=== PATIENT | female | born 1965 ===

== ENCOUNTER 2017-03-17 16:41 | Emergency (ER) | payer OTHER ==
[2017-03-17 17:00] VITALS: BP 151/90; PULSE 86; RESP 18; TEMP 98.3; O2SAT 99
--- NOTE | 2017-03-17 17:27 | ED PDOC ---
HPI: Abdomen Time Seen by Provider: 03/17/17 17:06 Chief Complaint (Nursing): Abdominal Pain Chief Complaint (Provider): Abdominal pain History Per: Patient History/Exam Limitations: no limitations Outside of [place] travel?: No Current Symptoms Are (Timing): Still Present Location Of Pain/Discomfort: Diffuse Quality Of Discomfort: "Pain" Associated Symptoms: Nausea, Vomiting. denies: Fever, Diarrhea, Constipation, Urinary Symptoms Additional Complaint(s): The patient is a 51yo female, presents to the ED for evaluation of abdominal pain since today with associated nausea and vomiting. She reports the pain is located in her right lateral abdomen, denies any back pain. Contrary to triage note, the patient denies any chest pain. She also denies constipation, diarrhea or genitourinary symptoms. The patient offers no additional medical complaints. Past Medical History Reviewed: Historical Data, Nursing Documentation, Vital Signs Vital Signs: Last Vital Signs Temp 98.3 F 03/17/17 16:54 Pulse 86 03/17/17 16:54 Resp 18 03/17/17 16:54 BP 151/90 H 03/17/17 16:54 Pulse Ox 99 03/18/17 05:29 - Medical History PMH: Diabetes, HTN, Hypothyroidism Denies: HIV, Chronic Kidney Disease - Surgical History Surgical History: Appendectomy, Cholecystectomy - Family History Family History: States: Unknown Family Hx - Home Medications Home Medications: Ambulatory Orders Medication Instructions Recorded Fenofibrate [Tricor] 125 tab PO DAILY 08/29/16 Levothyroxine [Synthroid] 1 tab PO DAILY 08/29/16 Losartan [Cozaar] 1 tab PO DAILY 08/29/16 Aspirin 325 mg PO DAILY #1 tab 08/30/16 Atorvastatin [Lipitor] 10 mg PO HS #30 tab 08/30/16 Cyanocobalamin (Vitamin B-12) 500 mcg PO DAILY #30 tablet 08/30/16 [B-12 Dots] - Allergies Allergies/Adverse Reactions: Allergies Allergy/AdvReac Type Severity Reaction Status Date / Time levofloxacin [From Levaquin] AdvReac VOMITING Verified 07/07/16 19:51 Review of Systems ROS Statement: Except As Marked, All Systems Reviewed And Found Negative Constitutional: Negative for: Fever Gastrointestinal: Positive for: Nausea, Vomiting, Abdominal Pain. Negative for : Diarrhea, Constipation Genitourinary Female: Negative for: Dysuria, Frequency, Incontinence, Hematuria Musculoskeletal: Negative for: Back Pain Physical Exam - Reviewed Nursing Documentation Reviewed: Yes Vital Signs Reviewed: Yes - Physical Exam Appears: Positive for: Well, Non-toxic, No Acute Distress Head Exam: Positive for: ATRAUMATIC, NORMAL INSPECTION, NORMOCEPHALIC Skin: Positive for: Normal Color Neck: Positive for: Normal Cardiovascular/Chest: Positive for: Regular Rate, Rhythm Respiratory: Positive for: Normal Breath Sounds. Negative for: Respiratory Distress Gastrointestinal/Abdominal: Positive for: Soft, Tenderness (right upper quadrant and right lower quadrant ). Negative for: Mass, Guarding, Rebound Back: Negative for: R CVA Tenderness Neurologic/Psych: Positive for: Alert, Oriented - Laboratory Results Result Diagrams: 03/17/17 17:42 03/17/17 17:42 - ECG O2 Sat by Pulse Oximetry: 99 (RA) Pulse Ox Interpretation: Normal Medical Decision Making Medical Decision Making: Time: 675 Impression: 51yo female with abdominal pain; hx of appendectomy and cholecystectomy Plan: -- CT AP -- Labs -- Morphine 2 mg IV -- IV Fluids -- Zofran 4mg IV Reassess Scribe Attestation: Documented by Taty Bliss acting as a scribe for Pennie Martinez MD. Provider Attestation: All medical record entries made by the Scribe were at my direction and personally dictated by me. I have reviewed the chart and agree that the record accurately reflects my personal performance of the history, physical exam, medical decision making, and the department course for this patient. I have also personally directed, reviewed, and agree with the discharge instructions and disposition. Disposition - Clinical Impression Clinical Impression: Abdominal pain - Patient ED Disposition Is Patient to be Admitted: Transfer of Care - Disposition Referrals: [facility] [Outside] [facility] [Outside] Disposition: Transfer of Care Disposition Time: 19:00 Condition: IMPROVED Additional Instructions: follow up with your primary doctor in 1-2 days return to the ED with any worsening or concerning symptoms. Instructions: Constipation (ED), Acute Abdominal Pain (ED), Anemia (ED) Forms: [employer] (Greenlandic) Print Language: AZERI Patient Signed Over To: Newton Burnett Y Handoff Comments: Pending CT AP
[2017-03-17] MEDS ORDERED: Sodium Chloride 0.9% 1,000 ML IV STA (17:28)
[2017-03-17 17:50] LABS: BASO % 0.6 % (0.0-2.0); EOS # 0.1 K/uL (0.0-0.7); EOS % 1.9 % (0.0-4.0); HEMOGLOBIN 10.7 g/dL (12.0-16.0); LYMPH # 1.9 K/uL (1.0-4.3); LYMPH % 28.9 % (20.0-40.0); MEAN CELL VOLUME 87.8 fl (81.0-99.0); MEAN CORPUSCULAR HEMOGLOBIN 29.2 pg (27.0-31.0); MEAN CORPUSCULAR HGB CONC 33.3 g/dL (33.0-37.0); MEAN PLATELET VOLUME 7.7 fl (7.2-11.7); MONO # 0.3 K/uL (0.0-0.8); MONO % 4.2 % (0.0-10.0); NEUT # 4.2 K/uL (1.8-7.0); NEUT % 64.4 % (50.0-75.0); RBC 3.67 Mil/uL (3.80-5.20); WHITE BLOOD COUNT 6.5 K/uL (4.8-10.8)
[2017-03-17 17:59] LABS: BLOOD UREA NITROGEN 15 mg/dl (7-17); GFR AFRICAN-AMERICAN > 60; GFR NON-AFRICAN AMERICAN > 60
[2017-03-17 18:00] LABS: ALB/GLOB RATIO 1.3 (1.0-2.1); ALBUMIN 4.4 g/dL (3.5-5.0); ALT/SGPT 51 U/L (9-52); AST/SGOT 37 U/L (14-36); CALCIUM 9.4 mg/dL (8.4-10.2); LIPASE 109 U/L (23-300)
[2017-03-17 18:05] LABS: SQUAMOUS EPITHIAL 5 /hpf (0-5); URINE BACTERIA RARE (<OCC); URINE BILIRUBIN NEGATIVE (NEGATIVE); URINE BLOOD SMALL (NEGATIVE); URINE CLARITY CLOUDY (Clear); URINE COLOR YELLOW (YELLOW); URINE GLUCOSE (UA) NEG (Normal); URINE LEUKOCYTE ESTERASE NEG Leu/uL (Negative); URINE NITRATE NEGATIVE (NEGATIVE); URINE PROTEIN NEGATIVE (NEGATIVE); URINE UROBILINOGEN 0.2-1.0 mg/dL (0.2-1.0)
[2017-03-17] MEDS ORDERED: Fluconazole 150 MG TAB PO ONE (19:00)
--- NOTE | 2017-03-17 19:17 | ED PDOC ---
- Laboratory Results Result Diagrams: 03/17/17 17:42 03/17/17 17:42 - ECG O2 Sat by Pulse Oximetry: 99 (RA) Pulse Ox Interpretation: Normal Medical Decision Making Medical Decision Making: Receiving sign out: Patient signed out to me by Dr. Martinez at [address] AP. Scribe Attestation: Documented by Taty Bliss acting as a scribe for Newton Burnett MD. Provider Attestation: All medical record entries made by the Scribe were at my direction and personally dictated by me. I have reviewed the chart and agree that the record accurately reflects my personal performance of the history, physical exam, medical decision making, and the department course for this patient. I have also personally directed, reviewed, and agree with the discharge instructions and disposition. Disposition Counseled Patient/Family Regarding: Studies Performed, Diagnosis, Need For Followup - Clinical Impression Clinical Impression: Abdominal pain - POA Present On Arrival: None - Disposition Referrals: [facility] [Outside] [facility] [Outside] Disposition: Routine/Home Disposition Time: 20:00 Condition: IMPROVED Additional Instructions: follow up with your primary doctor in 1-2 days return to the ED with any worsening or concerning symptoms. Instructions: Constipation (ED), Acute Abdominal Pain (ED), Anemia (ED) Forms: [employer] (Micronesian) Print Language: ICELANDIC Progress Note - Review of Symptoms Events since last encounter: Time: 1999 CT AP IMPRESSION: Prior cholecystectomy; mild hepatomegaly, no acute solid visceral abnormality; possible constipation; nonvisualization the appendix with no CT findings of appendicitis ; scattered diverticulosis without CT findings of diverticulitis; possible anemia Additional findings as described above Time: 2099 Patient reports she feels much better, is stable for discharge home. She is aware of anemia and constipation findings. Diagnosis: Anemia, constipation
--- NOTE | 2017-03-17 19:17 | CT ---
EXAM: CT Abdomen and Pelvis Without Intravenous Contrast CLINICAL HISTORY: 51 years old, female; Pain; Abdominal pain; Other: R side lower pain/ and r flank; Additional info: R sided abd pain TECHNIQUE: Axial computed tomography images of the abdomen and pelvis without intravenous contrast. All CT scans at this facility use one or more dose reduction techniques, viz.: automated exposure control; ma/kV adjustment per patient size (including targeted exams where dose is matched to indication; i.e. head); or iterative reconstruction technique. Coronal and sagittal reformatted images were created and reviewed. EXAM DATE/TIME: 03/17/2017 5:28 PM COMPARISON: There are no prior studies for comparison. FINDINGS: Lower thorax: Heart size is normal. There is decreased attenuation of blood pool versus myocardium. There is minimal scarring at the lung bases. There is minimal nodular pleural scarring at the left base. There are no effusions ABDOMEN: Liver: Liver is mildly enlarged Gallbladder and bile ducts: Gallbladder is surgically absent. Common bile duct is prominent. Pancreas: unremarkable Spleen: unremarkable Adrenals: unremarkable Kidneys and ureters: unremarkable Stomach and bowel: Stomach is only partially distended. Rotation is normal. Small bowel is mildly distended with fluid and air. There is fecalization of the distal ileum. There is no obstruction. Appendix is not visualized. There is no pericecal inflammation. There is moderate stool in the colon. There is scattered diverticulosis. Appendix: See above. PELVIS: Bladder: unremarkable Reproductive: Uterus and adnexal structures are unremarkable. ABDOMEN and PELVIS: Intraperitoneal space: There is no free air or free fluid. Bones/joints: There are no acute osseous abnormalities. There is minimal sclerosis at the sacroiliac joints. Soft tissues: There is a small fat containing ventral hernia. There is a very small fat containing umbilical hernia. Vasculature: Vascular structures are unremarkable. Lymph nodes: There is no pathologic adenopathy. IMPRESSION: Prior cholecystectomy; mild hepatomegaly, no acute solid visceral abnormality; possible constipation; nonvisualization the appendix with no CT findings of appendicitis; scattered diverticulosis without CT findings of diverticulitis; possible anemia Additional findings as described above.
== END 2017-03-17 21:28 | disposition home or self-care (01) ==
LOC: H.ER 16:41
DX: R10.9 Unspecified abdominal pain (principal); I10 Essential (primary) hypertension; E11.9 Type 2 diabetes mellitus without complications

== ENCOUNTER 2017-04-03 16:33 | Emergency (ER) | payer OTHER ==
[2017-04-03 16:47] VITALS: BP 133/85; PULSE 88; RESP 18; TEMP 98.8; O2SAT 100
[2017-04-03] MEDS ORDERED: Sodium Chloride 0.9% 1,000 ML IV STA (17:11)
--- NOTE | 2017-04-03 17:12 | ED PDOC ---
HPI: Female Pain Time Seen by Provider: 04/03/17 17:10 Chief Complaint (Nursing): Female Genitourinary Chief Complaint (Provider): abdominal pain History Per: Patient, Coat Check Attendant (Sharee Douglas, RN at bedside for Russian translation) Additional Complaint(s): 51-year-old female presents to emergency department with right-sided abdominal pain 4 days. Patient noticed dysuria as of yesterday. Patient denies chills. She states that she has history of constipation and had a bowel movement earlier during which she was straining. Patient states 3 days ago she had pain in right upper part of abdomen and today her pain is in the right lower part of her abdomen. She denies any rectal bleeding. No fever or chills. Patient denies any associated vaginal bleeding or discharge. Past Medical History Reviewed: Historical Data, Nursing Documentation, Vital Signs Vital Signs: Last Vital Signs Temp 98.8 F 04/03/17 16:45 Pulse 88 04/03/17 16:45 Resp 18 04/03/17 16:45 BP 133/85 04/03/17 16:45 Pulse Ox 100 04/03/17 16:45 - Medical History PMH: Diabetes, HTN, Hypothyroidism, Chronic Kidney Disease - Surgical History Surgical History: Appendectomy, Cholecystectomy - Family History Family History: States: No Known Family Hx - Living Arrangements Living Arrangements: With Family - Social History Current smoker - smoking cessation education provided: No Alcohol: None Drugs: Denies - Home Medications Home Medications: Ambulatory Orders Medication Instructions Recorded Fenofibrate [Tricor] 125 tab PO DAILY 08/29/16 Levothyroxine [Synthroid] 1 tab PO DAILY 08/29/16 Losartan [Cozaar] 1 tab PO DAILY 08/29/16 Aspirin 325 mg PO DAILY #1 tab 08/30/16 Atorvastatin [Lipitor] 10 mg PO HS #30 tab 08/30/16 Cyanocobalamin (Vitamin B-12) 500 mcg PO DAILY #30 tablet 08/30/16 [B-12 Dots] Ibuprofen [Motrin Tab] 800 mg PO Q8 PRN #20 tab 04/03/17 Polyethylene Glycol 3350 [Miralax] 1 bottle PO DAILY #1 bottle 04/03/17 - Allergies Allergies/Adverse Reactions: Allergies Allergy/AdvReac Type Severity Reaction Status Date / Time levofloxacin [From Levaquin] AdvReac VOMITING Verified 07/07/16 19:51 Review of Systems ROS Statement: Except As Marked, All Systems Reviewed And Found Negative Constitutional: Negative for: Fever, Chills (-) Cardiovascular: Negative for: Chest Pain Respiratory: Negative for: Cough Gastrointestinal: Positive for: Abdominal Pain, Constipation. Negative for: Nausea, Vomiting, Diarrhea, Melena, Hematochezia, Hematemesis, Rectal Pain Genitourinary Female: Positive for: Dysuria. Negative for: Vaginal Discharge, Vaginal Bleeding Physical Exam - Reviewed Nursing Documentation Reviewed: Yes Vital Signs Reviewed: Yes - Physical Exam Appears: Positive for: Well, Non-toxic, No Acute Distress Skin: Negative for: Rash Eye Exam: Positive for: Normal appearance Cardiovascular/Chest: Positive for: Regular Rate, Rhythm Respiratory: Positive for: Normal Breath Sounds Gastrointestinal/Abdominal: Positive for: Tenderness (Mild diffuse tenderness to right side of abdomen with no rebound or guarding, normoactive bowel sounds in all 4 quadrants, no distention) Back: Negative for: L CVA Tenderness, R CVA Tenderness Extremity: Positive for: Normal ROM Neurologic/Psych: Positive for: Alert, Oriented - Laboratory Results Result Diagrams: 04/03/17 17:45 04/03/17 17:45 Urine POC: Negative Urine dip results: Positive for: Blood (small). Negative for: Leukocyte Esterase, Nitrate, Ketones, Glucose, Bilirubin, Protein - ECG O2 Sat by Pulse Oximetry: 100 Pulse Ox Interpretation: Normal - Other Rad CT and and pelvis without contrast X-Ray: Read By Radiologist X-Ray Interpretation: see below Medical Decision Making Medical Decision Makin51 year old with abdominal pain and constipation Plan: Urine dip CBC CMP CT abd and pelvis without contrast IVF IV Toradol CT: FINDINGS: LOWER THORAX: Small nodular densities both posterior sulci, 1 laterally and the other posteriorly located could be postinflammatory. Followup interval could be performed to assess stability. No focal consolidation. No effusion or basilar pneumothorax LIVER: Liver is enlarged measuring nearly 22 cm in CC dimension. No obvious hepatic mass collection or calcification seen. GALLBLADDER AND BILE DUCTS: Again noted are changes of cholecystectomy. PANCREAS: Pancreas appears grossly unremarkable without mass collection or calcification. No significant pancreatic ductal dilatation seen. Dean go the. SPLEEN: Spleen exhibits normal size and attenuation pattern without mass collection or calcification. ADRENALS: Unremarkable. No adrenal lesions seen. KIDNEYS AND URETERS: Kidneys demonstrate relatively symmetric nephrograms. No evidence of nephrolithiasis or hydronephrosis. BLADDER: Urinary bladder is physiologically distended. No evidence of intraluminal urinary bladder calculi. REPRODUCTIVE: Uterus and adnexal structures appear grossly unremarkable as visualized. APPENDIX: The appendix is not seen with certainty on this study however no obvious inflammatory changes right lower quadrant of the abdomen, BOWEL: Evaluation of the bowel is limited due to the lack of oral contrast. Stomach is incompletely distended which presumably accounts for slight thick-walled appearance. Visualized loops of small bowel exhibit normal contour and caliber. No evidence of acute mechanical small bowel obstruction. There is a moderate amount of stool within the cecum and some fecalized content within the terminal ileum suggesting constipation and retrograde stasis. There does appear to be a few scattered colonic diverticula however no radiographic evidence of acute diverticulitis. PERITONEUM: Unremarkable. No fluid collection. No free air. Tiny fat containing umbilical hernia. LYMPH NODES: Unremarkable. No enlarged lymph nodes. VASCULATURE: No evidence of abdominal aortic or iliac artery aneurysms. BONES: Osseous structures appear grossly intact. Minor multilevel degenerative spondylosis of the lower thoracic and lumbar spine. OTHER FINDINGS: None. IMPRESSION: Hepatomegaly. Status post cholecystectomy. Findings consistent with mild constipation as detailed above. Diverticulosis without radiographic evidence of acute diverticulitis. Patient is aware of all diagnostic testing results, all questions answered. Patient states pain is improved after Toradol dose given. Prescriptions given for Motrin and MiraLAX. Patient given dietary instructions for relief of constipation. She was referred to clinic for follow-up. Disposition - Clinical Impression Clinical Impression: Abdominal pain, Constipation - Patient ED Disposition Is Patient to be Admitted: No Counseled Patient/Family Regarding: Studies Performed, Diagnosis, Need For Followup, Rx Given - Disposition Referrals: [facility] [Outside] Disposition: Routine/Home Disposition Time: 19:47 Condition: STABLE Additional Instructions: Take rx meds as directed. Increased fiber in diet. Drink plenty of fluids. Follow up with clinic in 3-4 days. Prescriptions: Ibuprofen [Motrin Tab] 800 mg PO Q8 PRN #20 tab PRN Reason: Pain, Moderate (4-7) Polyethylene Glycol 3350 [Miralax] 1 bottle PO DAILY #1 bottle Instructions: Constipation (ED), High Fiber Diet (ED) Forms: [employer] (Russian) Print Language: GREENLANDIC Results - Lab Results Lab Results: 04/03/17 04/03/17 17:45 17:45 WBC 10.0 D RBC 3.77 L Hgb 11.1 L Hct 32.8 L MCV 86.9 MCH 29.5 MCHC 33.9 RDW 13.8 Plt Count 368 D MPV 9.0 Neut % (Auto) 54.5 Lymph % (Auto) 37.5 [place] % (Auto) 4.5 Eos % (Auto) 2.3 Baso % (Auto) 1.2 Neut # 4.6 Lymph # 3.2 [place] # 0.4 Eos # 0.2 Baso # 0.1 Sodium 140 Potassium 4.6 Chloride 108 H Carbon Dioxide 23 Anion Gap 14 BUN 21 H Creatinine 0.4 L Est GFR ( Amer) > 60 Est GFR (Non-Af Amer) > 60 Random Glucose 122 H Calcium 9.5 Total Bilirubin 0.7 AST 41 H ALT 37 Alkaline Phosphatase 140 H D Total Protein 8.2 Albumin 4.4 Globulin 3.8 Albumin/Globulin Ratio 1.1
[2017-04-03 18:11] LABS: BASO # 0.1 K/uL (0.0-0.2); MEAN CORPUSCULAR HEMOGLOBIN 29.5 pg (27.0-31.0)
[2017-04-03 18:15] LABS: ALB/GLOB RATIO 1.1 (1.0-2.1); ALKALINE PHOSPHATASE 140 U/L (38-126); ALT/SGPT 37 U/L (9-52); AST/SGOT 41 U/L (14-36); BASO % 1.2 % (0.0-2.0); BILIRUBIN,TOTAL 0.7 mg/dl (0.2-1.3); BLOOD UREA NITROGEN 21 mg/dl (7-17); CALCIUM 9.5 mg/dL (8.4-10.2); CARBON DIOXIDE 23 mmol/L (22-30); CHLORIDE 108 mmol/L (98-107); EOS # 0.2 K/uL (0.0-0.7); EOS % 2.3 % (0.0-4.0); GFR AFRICAN-AMERICAN > 60; GLUCOSE,RANDOM 122 mg/dL (65-105); HEMATOCRIT 32.8 % (34.0-47.0); LYMPH # 3.2 K/uL (1.0-4.3); LYMPH % 37.5 % (20.0-40.0); MEAN CELL VOLUME 86.9 fl (81.0-99.0); MEAN CORPUSCULAR HGB CONC 33.9 g/dL (33.0-37.0); MONO # 0.4 K/uL (0.0-0.8); MONO % 4.5 % (0.0-10.0); NEUT # 4.6 K/uL (1.8-7.0); NEUT % 54.5 % (50.0-75.0); NRBC % 0.4 % (0.0-0.0); RED CELL DISTRIBUTION WIDTH 13.8 % (11.5-14.5); SODIUM 140 mmol/l (132-148); TOTAL PROTEIN 8.2 G/DL (6.3-8.2)
[2017-04-03 18:16] LABS: POTASSIUM 4.6 MMOL/L (3.6-5.0)
--- NOTE | 2017-04-03 19:04 | CT ---
PROCEDURE: CT abdomen and pelvis dated 04/03/2017 HISTORY: Right-sided flank pain, hematuria COMPARISON: Comparison made with prior study 03/17/2017 TECHNIQUE: Contiguous axial images of the abdomen and pelvis performed without oral or intravenous. Coronal and Sagittal reformats generated. Radiation dose: Total exam DLP = contrast 966.3 mGy-cm. This CT exam was performed using one or more of the following dose reduction techniques: Automated exposure control, adjustment of the mA and/or kV according to patient size, and/or use of iterative reconstruction technique. FINDINGS: LOWER THORAX: Small nodular densities both posterior sulci, 1 laterally and the other posteriorly located could be postinflammatory. Followup interval could be performed to assess stability. No focal consolidation. No effusion or basilar pneumothorax LIVER: Liver is enlarged measuring nearly 22 cm in CC dimension. No obvious hepatic mass collection or calcification seen. GALLBLADDER AND BILE DUCTS: Again noted are changes of cholecystectomy. PANCREAS: Pancreas appears grossly unremarkable without mass collection or calcification. No significant pancreatic ductal dilatation seen. Dean go the. SPLEEN: Spleen exhibits normal size and attenuation pattern without mass collection or calcification. ADRENALS: Unremarkable. No adrenal lesions seen. KIDNEYS AND URETERS: Kidneys demonstrate relatively symmetric nephrograms. No evidence of nephrolithiasis or hydronephrosis. BLADDER: Urinary bladder is physiologically distended. No evidence of intraluminal urinary bladder calculi. REPRODUCTIVE: Uterus and adnexal structures appear grossly unremarkable as visualized. APPENDIX: The appendix is not seen with certainty on this study however no obvious inflammatory changes right lower quadrant of the abdomen BOWEL: Evaluation of the bowel is limited due to the lack of oral contrast. Stomach is incompletely distended which presumably accounts for slight thick-walled appearance. Visualized loops of small bowel exhibit normal contour and caliber. No evidence of acute mechanical small bowel obstruction. . There is a moderate amount of stool within the cecum and some fecalized content within the terminal ileum suggesting constipation and retrograde stasis. There does appear to be a few scattered colonic diverticula however no radiographic evidence of acute diverticulitis. PERITONEUM: Unremarkable. No fluid collection. No free air. Tiny fat containing umbilical hernia. LYMPH NODES: Unremarkable. No enlarged lymph nodes. VASCULATURE: No evidence of abdominal aortic or iliac artery aneurysms. . BONES: Osseous structures appear grossly intact. Minor multilevel degenerative spondylosis of the lower thoracic and lumbar spine. OTHER FINDINGS: None. IMPRESSION: Hepatomegaly. Status post cholecystectomy. Findings consistent with mild constipation as detailed above. Diverticulosis without radiographic evidence of acute diverticulitis.
== END 2017-04-03 20:09 | disposition home or self-care (01) ==
LOC: H.ER 16:33
DX: K59.00 Constipation, unspecified (principal); R10.31 Right lower quadrant pain; E11.22 Type 2 diabetes mellitus with diabetic chronic kidney disease; I12.9 Hypertensive chronic kidney disease with stage 1 through stage 4 chronic kidney disease, or unspecified chronic kidney disease; Z79.82 Long term (current) use of aspirin; Z90.49 Acquired absence of other specified parts of digestive tract
CPT/HCPCS: 74176; 80053; 81025; 85025; 96361; 96374; 96375; 99283; J1885; J2405; J7040

== ENCOUNTER 2017-07-10 13:23 | Emergency (ER) | payer OTHER ==
[2017-07-10 13:52] VITALS: RESP 18; O2SAT 99
--- NOTE | 2017-07-10 13:54 | ED PDOC ---
HPI: General Adult Time Seen by Provider: 07/10/17 13:54 Chief Complaint (Nursing): Flu-like Symptoms Chief Complaint (Provider): fever, bodyaches History Per: Patient Additional Complaint(s): 51-year-old female presents with tactile fever, body aches, headache and nausea that started 2 days ago. Patient has slight cough. No associated abdominal pain , vomiting, diarrhea or constipation. She denies any recent travel. Patient took ibuprofen yesterday for the headache which did help somewhat. She denies sick contacts. She has also had decreased appetite. Past Medical History Reviewed: Historical Data, Nursing Documentation, Vital Signs Vital Signs: Last Vital Signs Temp 98.5 F 07/10/17 16:53 Pulse 80 07/10/17 16:53 Resp 18 07/10/17 16:53 BP 106/63 07/10/17 16:53 Pulse Ox 99 07/10/17 16:53 - Medical History PMH: Diabetes, HTN, Hypercholesterolemia, Hypothyroidism - Surgical History Surgical History: Appendectomy, Cholecystectomy - Family History Family History: States: No Known Family Hx - Living Arrangements Living Arrangements: With Family - Social History Current smoker - smoking cessation education provided: No Alcohol: None Drugs: Denies - Home Medications Home Medications: Ambulatory Orders Medication Instructions Recorded Fenofibrate [Tricor] 125 tab PO DAILY 08/29/16 Levothyroxine [Synthroid] 1 tab PO DAILY 08/29/16 Losartan [Cozaar] 1 tab PO DAILY 08/29/16 Aspirin 325 mg PO DAILY #1 tab 08/30/16 Atorvastatin [Lipitor] 10 mg PO HS #30 tab 08/30/16 Cyanocobalamin (Vitamin B-12) 500 mcg PO DAILY #30 tablet 08/30/16 [B-12 Dots] Ibuprofen [Motrin Tab] 800 mg PO Q8 PRN #20 tab 04/03/17 Polyethylene Glycol 3350 [Miralax] 1 bottle PO DAILY #1 bottle 04/03/17 Metoclopramide [Reglan] 10 mg PO Q6 PRN #20 tab 07/10/17 Naproxen [Naprosyn] 500 mg PO BID #20 tab 07/10/17 - Allergies Allergies/Adverse Reactions: Allergies Allergy/AdvReac Type Severity Reaction Status Date / Time levofloxacin [From Levaquin] AdvReac VOMITING Verified 07/10/17 13:58 Review of Systems ROS Statement: Except As Marked, All Systems Reviewed And Found Negative Constitutional: Positive for: Fever (tactile, not measured) ENT: Negative for: Throat Pain Cardiovascular: Negative for: Chest Pain Respiratory: Positive for: Cough (slight dry cough) Gastrointestinal: Negative for: Vomiting, Abdominal Pain, Diarrhea, Constipation Genitourinary Female: Negative for: Dysuria Physical Exam - Reviewed Nursing Documentation Reviewed: Yes Vital Signs Reviewed: Yes - Physical Exam Appears: Positive for: Well Skin: Positive for: Normal Color. Negative for: Rash Eye Exam: Positive for: Normal appearance ENT: Positive for: Normal ENT Inspection Cardiovascular/Chest: Positive for: Regular Rate, Rhythm Respiratory: Positive for: Normal Breath Sounds Gastrointestinal/Abdominal: Positive for: Soft. Negative for: Tenderness, Distended, Guarding, Rebound Back: Negative for: L CVA Tenderness, R CVA Tenderness Extremity: Positive for: Normal ROM. Negative for: Pedal Edema Neurologic/Psych: Positive for: Alert, Oriented - Laboratory Results Result Diagrams: 07/10/17 15:46 07/10/17 15:46 Urine dip results: Negative for: Leukocyte Esterase - ECG O2 Sat by Pulse Oximetry: 99 Pulse Ox Interpretation: Normal - Other Rad CXR X-Ray: Interpreted by Me, Viewed By Me X-Ray Interpretation: no acute finding CT head X-Ray: Read By Radiologist X-Ray Interpretation: no acute finding Medical Decision Making Medical Decision Makin51 year old with flu-like symptoms. Patient is afebrile in ED. Plan: Flu swab CBC CMP Lipase Urine dip CXR PO motrin and tylenol IVF 4:40 pm: Patient states that headache is still persistent despite treatment. She also complains of persistent nausea. 10 mg IV Reglan administered, CT head ordered. Tramadol 50 mg PO also given 6:30 pm: Patient states headache now resolved as well as nausea. Patient aware of all diagnostic testing results, all questions answered. He is provided for Naprosyn and Reglan. Patient was advised to drink plenty of fluids, get plenty of rest and she was referred to clinic for follow up. Patient is aware she can RTED at any time if acutely worse. Disposition - Clinical Impression Clinical Impression: Viral illness, Headache - Patient ED Disposition Is Patient to be Admitted: No Counseled Patient/Family Regarding: Studies Performed, Diagnosis - Disposition Referrals: [facility] [Outside] Disposition: Routine/Home Disposition Time: 18:55 Condition: STABLE Additional Instructions: Rest and drink plenty of fluids. Take prescription meds as directed. Follow up with clinic in 2-3 days. Prescriptions: Metoclopramide [Reglan] 10 mg PO Q6 PRN #20 tab PRN Reason: Nausea/Vomiting Naproxen [Naprosyn] 500 mg PO BID #20 tab Instructions: General Headache (ED), Viral Syndrome (ED) Forms: [employer] (Mozambican), [facility] ED School/Work Excuse Print Language: KITTITIAN Results - Lab Results Lab Results: 07/10/17 07/10/17 07/10/17 15:46 15:46 14:53 WBC 8.6 RBC 4.00 Hgb 11.5 L Hct 34.5 MCV 86.1 MCH 28.8 MCHC 33.4 RDW 13.9 Plt Count 277 MPV 7.9 Neut % (Auto) 82.3 H Lymph % (Auto) 12.7 L Garza % (Auto) 4.3 Eos % (Auto) 0.2 Baso % (Auto) 0.5 Neut # 7.1 H Lymph # 1.1 Garza # 0.4 Eos # 0.0 Baso # 0.0 Sodium 142 Potassium 3.3 L Chloride 109 H Carbon Dioxide 21 L Anion Gap 15 BUN 15 Creatinine 0.5 L Est GFR ( Amer) > 60 Est GFR (Non-Af Amer) > 60 Random Glucose 102 Calcium 9.4 Total Bilirubin 0.4 AST 39 H ALT 50 Alkaline Phosphatase 96 Total Protein 8.1 Albumin 4.5 Globulin 3.6 Albumin/Globulin Ratio 1.2 Lipase 79 Influenza Typ A,B (EIA) Negative for flu a/b
--- NOTE | 2017-07-10 15:16 | RAD ---
HISTORY: COMPARISON: 08/29/2016 TECHNIQUE: Chest PA and lateral FINDINGS: LINES AND TUBES: None. LUNG AND PLEURA: The lungs are well inflated and clear. HEART AND MEDIASTINUM: The heart is not enlarged. The hilar and mediastinal contours are within normal limits. SKELETAL STRUCTURES: The bony structures are within normal limits for the patient's age. VISUALIZED UPPER ABDOMEN: Normal. OTHER FINDINGS: None. IMPRESSION: No active pulmonary disease.
[2017-07-10] MEDS ORDERED: Sodium Chloride 0.9% 1,000 ML IV STA ×2 (15:17→16:40)
[2017-07-10 15:57] LABS: BASO % 0.5 % (0.0-2.0); EOS % 0.2 % (0.0-4.0); HEMATOCRIT 34.5 % (34.0-47.0); LYMPH # 1.1 K/uL (1.0-4.3); LYMPH % 12.7 % (20.0-40.0); MEAN CELL VOLUME 86.1 fl (81.0-99.0); MEAN CORPUSCULAR HEMOGLOBIN 28.8 pg (27.0-31.0); MEAN CORPUSCULAR HGB CONC 33.4 g/dL (33.0-37.0); MEAN PLATELET VOLUME 7.9 fl (7.2-11.7); MONO # 0.4 K/uL (0.0-0.8); MONO % 4.3 % (0.0-10.0); NEUT # 7.1 K/uL (1.8-7.0); NEUT % 82.3 % (50.0-75.0); RED CELL DISTRIBUTION WIDTH 13.9 % (11.5-14.5); WHITE BLOOD COUNT 8.6 K/uL (4.8-10.8)
[2017-07-10 16:04] LABS: ALB/GLOB RATIO 1.2 (1.0-2.1); ALKALINE PHOSPHATASE 96 U/L (38-126); ALT/SGPT 50 U/L (9-52); AST/SGOT 39 U/L (14-36); BILIRUBIN,TOTAL 0.4 mg/dl (0.2-1.3); BLOOD UREA NITROGEN 15 mg/dl (7-17); CALCIUM 9.4 mg/dL (8.4-10.2); CARBON DIOXIDE 21 mmol/L (22-30); CHLORIDE 109 mmol/L (98-107); GFR AFRICAN-AMERICAN > 60; GLUCOSE,RANDOM 102 mg/dL (65-105); LIPASE 79 U/L (23-300); POTASSIUM 3.3 MMOL/L (3.6-5.0); SODIUM 142 mmol/l (132-148); TOTAL PROTEIN 8.1 G/DL (6.3-8.2)
[2017-07-10] MEDS ORDERED: Potassium Chloride 20 mEq ER Tab PO STA (16:22)
[2017-07-10] MEDS ORDERED: Potassium Chloride 20 mEq ER Tab PO ONE (16:39)
[2017-07-10 16:54] VITALS: TEMP 98.5
--- NOTE | 2017-07-10 17:36 | CT ---
PROCEDURE: CT HEAD WITHOUT CONTRAST. HISTORY: Headache COMPARISON: 08/29/2016. TECHNIQUE: Axial computed tomography images were obtained through the head/brain without intravenous contrast. Radiation dose: Total exam DLP = 774.74 mGy-cm. This CT exam was performed using one or more of the following dose reduction techniques: Automated exposure control, adjustment of the mA and/or kV according to patient size, and/or use of iterative reconstruction technique. FINDINGS: HEMORRHAGE: No intracranial hemorrhage. BRAIN: Stubbs-white matter differentiation is preserved. There is no mass, mass effect or abnormal extra-axial fluid collection. VENTRICLES: The ventricles are normal in size, shape and configuration. CALVARIUM: The skull base and calvarium are normal. PARANASAL SINUSES: Predominantly clear. MASTOID AIR CELLS: Predominantly clear. OTHER FINDINGS: None. IMPRESSION: No acute intracranial abnormality.
[2017-07-10 19:00] VITALS: BP 120/74; PULSE 74
== END 2017-07-10 19:06 | disposition home or self-care (01) ==
LOC: H.ER 13:23
DX: B34.9 Viral infection, unspecified (principal); R51 Headache; E11.9 Type 2 diabetes mellitus without complications; I10 Essential (primary) hypertension; E78.00 Pure hypercholesterolemia, unspecified; Z79.82 Long term (current) use of aspirin; E03.9 Hypothyroidism, unspecified
CPT/HCPCS: 70450; 71020; 80053; 81025; 83690; 85025; 87804; 96361; 96365; 99284; J2765; J7040

== ENCOUNTER 2017-08-25 21:45 | Emergency (ER) | payer SELFPAY ==
[2017-08-25 22:33] VITALS: BP 156/89; PULSE 78; RESP 18; TEMP 98.9; O2SAT 97
[2017-08-25] MEDS ORDERED: Oxycodone/Acetaminophen 5/325 mg Tab PO STA (22:41)
--- NOTE | 2017-08-25 23:31 | ED PDOC ---
Lower Extremity Pain/Injury Time Seen by Provider: 08/25/17 22:30 Chief Complaint (Nursing): Lower Extremity Problem/Injury Chief Complaint (Provider): ANKLE INJURY History Per: Patient (51 Y/O FEMALE HERE FOR EVALUATION OF RIGHT ANKLE INJURY THAT OCCURRED TODAY WHEN SHE MISSTEPPED IN HOLD IN GROUND. NOTES PAIN WITH AMBULATION. TOOK NAPROXEN AND TYLENOL PRIOR TO ED ARRIVAL.) Past Medical History Reviewed: Historical Data, Nursing Documentation, Vital Signs Vital Signs: Last Vital Signs Temp 98.9 F 08/25/17 22:30 Pulse 78 08/25/17 22:30 Resp 18 08/25/17 22:30 BP 156/89 H 08/25/17 22:30 Pulse Ox 97 08/25/17 22:30 - Medical History PMH: Diabetes, HTN, Hypercholesterolemia, Hypothyroidism, Chronic Kidney Disease Denies: HIV - Surgical History Surgical History: Appendectomy, Cholecystectomy - Family History Family History: States: Unknown Family Hx - Home Medications Home Medications: Ambulatory Orders Medication Instructions Recorded Fenofibrate [Tricor] 125 tab PO DAILY 08/29/16 Levothyroxine [Synthroid] 1 tab PO DAILY 08/29/16 Losartan [Cozaar] 1 tab PO DAILY 08/29/16 Aspirin 325 mg PO DAILY #1 tab 08/30/16 Atorvastatin [Lipitor] 10 mg PO HS #30 tab 08/30/16 Cyanocobalamin (Vitamin B-12) 500 mcg PO DAILY #30 tablet 08/30/16 [B-12 Dots] Ibuprofen [Motrin Tab] 800 mg PO Q8 PRN #20 tab 04/03/17 Polyethylene Glycol 3350 [Miralax] 1 bottle PO DAILY #1 bottle 04/03/17 Metoclopramide [Reglan] 10 mg PO Q6 PRN #20 tab 07/10/17 Naproxen [Naprosyn] 500 mg PO BID #20 tab 07/10/17 Naproxen 1 tab PO Q12 PRN #14 tab 08/25/17 - Allergies Allergies/Adverse Reactions: Allergies Allergy/AdvReac Type Severity Reaction Status Date / Time levofloxacin [From Levaquin] AdvReac VOMITING Verified 08/25/17 22:32 Review of Systems ROS Statement: Except As Marked, All Systems Reviewed And Found Negative Musculoskeletal: Positive for: Other (ANKLE INJURY) Physical Exam - Reviewed Nursing Documentation Reviewed: Yes Vital Signs Reviewed: Yes - Physical Exam Appears: Positive for: Well, Non-toxic, No Acute Distress Head Exam: Positive for: ATRAUMATIC, NORMAL INSPECTION, NORMOCEPHALIC Skin: Positive for: Normal Color, Warm, DRY Eye Exam: Positive for: EOMI, Normal appearance, PERRL ENT: Positive for: Normal ENT Inspection Neck: Positive for: Normal, Painless ROM Cardiovascular/Chest: Positive for: Regular Rate, Rhythm Respiratory: Positive for: CNT, Normal Breath Sounds Gastrointestinal/Abdominal: Positive for: Normal Exam, Bowel Sounds, Soft Back: Positive for: Normal Inspection Extremity: Positive for: Normal ROM, Tenderness, Swelling (SWELLING OF RIGHT LATERAL MALLEOULUS) Neurologic/Psych: Positive for: Alert, Oriented - ECG O2 Sat by Pulse Oximetry: 97 - Progress ED Course And Treament: PERCOCET 5/325 MG X 1 DOSE XRY OF FOOT RIGHT: NO ACUTE FX XRY OF ANKLE RIGHT: NO ACUTE FX D/W PODIATRY RESIDENT. NO FX SEEN BY HIM. WILL PLACE IN AIR CAST AND CRUTCHES WITH F/U WITH PODIATRY. Disposition - Clinical Impression Clinical Impression: Ankle sprain - Patient ED Disposition Is Patient to be Admitted: No - Disposition Disposition: Routine/Home Disposition Time: 23:32 Condition: FAIR Prescriptions: Naproxen 1 tab PO Q12 PRN #14 tab PRN Reason: Pain, Moderate (4-7) Instructions: Ankle Sprain (ED), Ankle Stirrup Splint (ED) Forms: [employer] (Tanzanian), [facility] ED School/Work Excuse Print Language: JAPANESE
--- NOTE | 2017-08-26 09:08 | RAD ---
PROCEDURE: Right Foot Radiographs. HISTORY: FOOT INJURY COMPARISON: None. FINDINGS: BONES: No acute fracture or destructive bony lesion identified. Small accessory ossicle or even osteophyte is seen anterior to the distal tibia adjacent to the tibiotalar joint anteriorly. JOINTS: No subluxation or dislocation identified. SOFT TISSUES: Normal. OTHER FINDINGS: None. IMPRESSION: Limited degenerative changes suspect the tibiotalar joint versus possible accessory ossicle inferior to the joint. Exam otherwise appears unremarkable no acute findings as above.
--- NOTE | 2017-08-26 09:11 | RAD ---
PROCEDURE: Right Ankle Radiographs. HISTORY: ANKLE INJURY COMPARISON: None FINDINGS: BONES: No acute fracture or destructive bony lesion identified. Accessory ossicle osteophyte is seen related to the anterior margins of the tibiotalar joint. JOINTS: Limited tibiotalar joint degenerative changes questioned. Ankle mortise maintained. Talar dome intact SOFT TISSUES: Moderate lateral malleolar soft tissue edema without underlying fracture appreciable. OTHER FINDINGS: None. IMPRESSION: Moderate lateral malleolar soft tissue edema without underlying fracture evident. Degenerative changes are suspected affecting the tibiotalar joint.
== END 2017-08-26 00:10 | disposition home or self-care (01) ==
LOC: H.ER 21:45
DX: S93.401A Sprain of unspecified ligament of right ankle, initial encounter (principal); X50.9XXA Other and unspecified overexertion or strenuous movements or postures, initial encounter; Y92.89 Other specified places as the place of occurrence of the external cause

== ENCOUNTER 2018-04-22 18:25 | Emergency (ER) | payer OTHER ==
[2018-04-22 18:34] VITALS: BP 145/86; PULSE 78; RESP 16; TEMP 98.8; O2SAT 98
--- NOTE | 2018-04-22 19:13 | ED PDOC ---
HPI: Back Time Seen by Provider: 04/22/18 19:01 Chief Complaint (Nursing): Back Pain Chief Complaint (Provider): Back pain History Per: Patient Additional Complaint(s): 52 yo female, PMH of HTN and Hypothyroidism, presents to ED for evaluation of right sided flank pain radiating to right lower quadrant x 2 days. No burning on urination, or blood. No fever or chills, nausea or vomiting Past Medical History Reviewed: Nursing Documentation, Vital Signs Vital Signs: Last Vital Signs Temp 98.8 F 04/22/18 18:31 Pulse 78 04/22/18 18:31 Resp 16 04/22/18 18:31 BP 145/86 04/22/18 18:31 Pulse Ox 98 04/22/18 18:31 - Medical History PMH: Diabetes, HTN, Hypercholesterolemia, Hypothyroidism, Chronic Kidney Disease Denies: HIV - Surgical History Surgical History: Appendectomy, Cholecystectomy - Family History Family History: States: Unknown Family Hx - Living Arrangements Living Arrangements: With Family - Social History Current smoker - smoking cessation education provided: No Alcohol: None Drugs: Denies - Home Medications Home Medications: Ambulatory Orders Medication Instructions Recorded Fenofibrate [Tricor] 125 tab PO DAILY 08/29/16 Levothyroxine [Synthroid] 1 tab PO DAILY 08/29/16 Losartan [Cozaar] 1 tab PO DAILY 08/29/16 Aspirin 325 mg PO DAILY #1 tab 08/30/16 Atorvastatin [Lipitor] 10 mg PO HS #30 tab 08/30/16 Cyanocobalamin (Vitamin B-12) 500 mcg PO DAILY #30 tablet 08/30/16 [B-12 Dots] Ibuprofen [Motrin Tab] 800 mg PO Q8 PRN #20 tab 04/03/17 Polyethylene Glycol 3350 [Miralax] 1 bottle PO DAILY #1 bottle 04/03/17 Metoclopramide [Reglan] 10 mg PO Q6 PRN #20 tab 07/10/17 Naproxen [Naprosyn] 500 mg PO BID #20 tab 07/10/17 Naproxen 1 tab PO Q12 PRN #14 tab 08/25/17 - Allergies Allergies/Adverse Reactions: Allergies Allergy/AdvReac Type Severity Reaction Status Date / Time levofloxacin [From Levaquin] AdvReac VOMITING Verified 04/22/18 18:31 Review of Systems ROS Statement: Except As Marked, All Systems Reviewed And Found Negative Musculoskeletal: Positive for: Back Pain Physical Exam - Reviewed Nursing Documentation Reviewed: Yes Vital Signs Reviewed: Yes - Physical Exam Appears: Positive for: Non-toxic, No Acute Distress, Uncomfortable Head Exam: Positive for: ATRAUMATIC, NORMAL INSPECTION, NORMOCEPHALIC Skin: Positive for: Normal Color, Warm, DRY Eye Exam: Positive for: EOMI, Normal appearance, PERRL ENT: Positive for: Normal ENT Inspection Neck: Positive for: Normal, Painless ROM Cardiovascular/Chest: Positive for: Regular Rate, Rhythm Respiratory: Positive for: CNT, Normal Breath Sounds Gastrointestinal/Abdominal: Positive for: Soft, Tenderness (R flank) Back: Positive for: R CVA Tenderness Extremity: Positive for: Normal ROM Neurologic/Psych: Positive for: Alert, Oriented - Laboratory Results Result Diagrams: 04/22/18 19:38 - ECG O2 Sat by Pulse Oximetry: 98 Medical Decision Making Medical Decision Making: IV access established and treatment initiated with IVF and Toradol Diagnostics obtained Case endorsed to LAWANDA Langley at 1999 pending diagnostic review or re-eval Disposition - Clinical Impression Clinical Impression: Back pain - Patient ED Disposition Is Patient to be Admitted: Transfer of Care - Disposition Disposition: Transfer of Care Disposition Time: 19:56 Condition: STABLE Forms: [employer] (Jamaican)
[2018-04-22] MEDS ORDERED: Sodium Chloride 0.9% 1,000 ML IV STA (19:17)
[2018-04-22 19:35] LABS: SQUAMOUS EPITHIAL < 1 /hpf (0-5); URINE BILIRUBIN NEGATIVE (NEGATIVE); URINE BLOOD SMALL (NEGATIVE); URINE CLARITY CLEAR (Clear); URINE COLOR STRAW (YELLOW); URINE GLUCOSE (UA) NEG (Normal); URINE LEUKOCYTE ESTERASE NEG Leu/uL (Negative); URINE PROTEIN NEGATIVE (NEGATIVE); URINE UROBILINOGEN 0.2-1.0 mg/dL (0.2-1.0)
[2018-04-22 19:48] LABS: BASO # 0.1 K/uL (0.0-0.2); BASO % 0.7 % (0.0-2.0); EOS # 0.1 K/uL (0.0-0.7); EOS % 1.5 % (0.0-4.0); HEMOGLOBIN 11.6 g/dL (12.0-16.0); LYMPH # 2.5 K/uL (1.0-4.3); LYMPH % 31.3 % (20.0-40.0); MEAN CELL VOLUME 87.4 fl (81.0-99.0); MEAN CORPUSCULAR HEMOGLOBIN 28.9 pg (27.0-31.0); MEAN CORPUSCULAR HGB CONC 33.1 g/dL (33.0-37.0); MEAN PLATELET VOLUME 7.5 fl (7.2-11.7); MONO # 0.4 K/uL (0.0-0.8); MONO % 4.7 % (0.0-10.0); NEUT % 61.8 % (50.0-75.0); RED CELL DISTRIBUTION WIDTH 14.1 % (11.5-14.5); WHITE BLOOD COUNT 8.1 K/uL (4.8-10.8)
[2018-04-22 19:50] LABS: ALB/GLOB RATIO 1.2 (1.0-2.1); ALBUMIN 4.4 g/dL (3.5-5.0); ALT/SGPT 39 U/L (9-52); AST/SGOT 37 U/L (14-36); BLOOD UREA NITROGEN 20 mg/dl (7-17); CALCIUM 9.6 mg/dL (8.4-10.2); GFR NON-AFRICAN AMERICAN > 60
--- NOTE | 2018-04-22 20:31 | ED PDOC ---
- Laboratory Results Result Diagrams: 04/22/18 19:38 04/22/18 19:38 - ECG O2 Sat by Pulse Oximetry: 98 - Progress ED Course And Treament: Case endorsed to abstract writer from Josette WEBBER pending CT EXAM: CT Abdomen and Pelvis Without Intravenous Contrast EXAM DATE/TIME: 04/22/2018 7:15 PM CLINICAL HISTORY: 52 years old, female; Pain; Abdominal pain; Flank; Right upper quadrant (ruq); Prior surgery; Surgery date: 6+ months; Surgery type: [place] surgery/ gallbladder; Additional info: R flank pain TECHNIQUE: Axial computed tomography images of the abdomen and pelvis without intravenous contrast. All CT scans at this facility use at least one of these dose optimization techniques: automated exposure control; mA and/or kV adjustment per patient size (includes targeted exams where dose is matched to clinical indication); or iterative reconstruction. COMPARISON: No relevant prior studies available. FINDINGS: Lower thorax: No acute findings. ABDOMEN: Liver: Normal. No mass. Gallbladder and bile ducts: Status post cholecystectomy. Pancreas: Normal. No ductal dilation. Spleen: Normal. No splenomegaly. Adrenals: Normal. No mass. Kidneys and ureters: Normal. No hydronephrosis. Stomach and bowel: Normal. No obstruction. No mucosal thickening. Appendix: There are no changes of appendicitis. A normal appendix is not seen. PELVIS: Bladder: Unremarkable as visualized. Reproductive: Unremarkable as visualized. ABDOMEN and PELVIS: Intraperitoneal space: Normal. No free air. No significant fluid collection. Bones/joints: No acute fracture. No dislocation. Soft tissues: Small fat filled epigastric ventral wall hernias. Vasculature: Normal. No abdominal aortic aneurysm. Lymph nodes: Normal. No enlarged lymph nodes. IMPRESSION: 1. Status post cholecystectomy. 2. Otherwise negative CT abdomen/pelvis. No renal or ureteral calculi are evident and there is no evidence of obstructive uropathy. Patient educated on findings (via [employer] hospital unit clerk [id number]), discharged with rx Naproxen Advised follow up PMD 2-3 days Return precautions given Disposition - Clinical Impression Clinical Impression: Back pain, Abdominal pain - POA Present On Arrival: None - Disposition Referrals: [facility] [Outside] Disposition: Routine/Home Disposition Time: 20:42 Condition: IMPROVED Prescriptions: Cyclobenzaprine [Cyclobenzaprine HCl] 10 mg PO BID PRN #10 tab PRN Reason: Muscle Spasm Naproxen [Naprosyn] 500 mg PO Q12 PRN #20 tablet PRN Reason: Pain, Moderate (4-7) Instructions: Low Back Pain in Adults, Acute Abdomen (Belly Pain), Adult (DC) Print Language: JORDANIAN
[2018-04-22] MEDS ORDERED: Oxycodone/Acetaminophen 5/325 mg Tab PO ONE (20:41)
[2018-04-22] MEDS ORDERED: Oxycodone/Acetaminophen 5/325 mg Tab ONE (20:52)
--- NOTE | 2018-04-23 09:19 | CT ---
Date of service: 04/22/2018 PROCEDURE: CT Abdomen and Pelvis without intravenous contrast HISTORY: R flank pain COMPARISON: 04/03/2017 TECHNIQUE: Without contrast.. Contrast dose: None Radiation dose: Total exam DLP = mGy-cm. This CT exam was performed using one or more of the following dose reduction techniques: Automated exposure control, adjustment of the mA and/or kV according to patient size, and/or use of iterative reconstruction technique. FINDINGS: LOWER THORAX: Right lateral lung base sub cm pleural base nodularity nonspecific. Stable since 04/03/2017-probably postinflammatory. LIVER: Unremarkable. No gross lesion or ductal dilatation. GALLBLADDER AND BILE DUCTS: Cholecystectomy status with clips in gallbladder fossa. Otherwise unremarkable. PANCREAS: Unremarkable. No gross lesion or ductal dilatation. SPLEEN: Unremarkable. ADRENALS: Unremarkable. No mass. KIDNEYS AND URETERS: Unremarkable. No hydronephrosis. No solid mass. VASCULATURE: Unremarkable. No aortic aneurysm. BOWEL: Extensive stool in the very low lying cecum which is packed in the right hemipelvis. No obstruction. No gross mural thickening. APPENDIX: Appendix not identified with certainty. No pericecal inflammatory changes noted PERITONEUM: Unremarkable. No free fluid. No free air. LYMPH NODES: Unremarkable. No enlarged lymph nodes. BLADDER: Unremarkable. REPRODUCTIVE: Unremarkable. BONES: No acute fracture. Incidental left acetabular roof posterior bone island benign-appearing. Similar OTHER FINDINGS: None. IMPRESSION: No urolithiasis appreciated. No hydronephrosis or hydroureter. Extensive stool retention in the cecum and right colon. The stool filled cecum is packed in the right hemipelvis. The appendix is not identified. No pericecal inflammatory changes noted. Status post cholecystectomy. Other findings as above. Concordant results (preliminary interpretation) provided by [employer].
== END 2018-04-22 21:16 | disposition home or self-care (01) ==
LOC: H.ER 18:25
DX: M54.9 Dorsalgia, unspecified (principal); R10.9 Unspecified abdominal pain; E03.9 Hypothyroidism, unspecified; E78.00 Pure hypercholesterolemia, unspecified; I12.9 Hypertensive chronic kidney disease with stage 1 through stage 4 chronic kidney disease, or unspecified chronic kidney disease
CPT/HCPCS: 74176; 80053; 81003; 85025; 96361; 96374; 99282; J1885; J7030

== ENCOUNTER 2018-06-18 18:26 | Emergency (ER) | payer SELFPAY ==
--- NOTE | 2018-06-18 20:26 | ED PDOC ---
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 Patient states she tripped over some rocks outside and landed directly on left knee and tried to use rest of body to prevent her head and face from hitting ground. Patient denies head injury, numbness/weakness of extremities, bowel/bladder incontinence, hematuria. Past Medical History Reviewed: Historical Data, Nursing Documentation, Vital Signs Vital Signs: Last Vital Signs Temp 98.4 F 06/18/18 18:55 Pulse 76 06/18/18 18:55 Resp 16 06/18/18 18:55 BP 161/99 H 06/18/18 18:55 Pulse Ox 99 06/18/18 18:55 - Medical History PMH: Diabetes, HTN, Hypercholesterolemia, Hypothyroidism, Chronic Kidney Disease Denies: HIV - Surgical History Surgical History: Appendectomy, Cholecystectomy - Family History Family History: States: Unknown Family Hx - Home Medications Home Medications: Ambulatory Orders Medication Instructions Recorded Fenofibrate [Tricor] 125 tab PO DAILY 08/29/16 Levothyroxine [Synthroid] 1 tab PO DAILY 08/29/16 Losartan [Cozaar] 1 tab PO DAILY 08/29/16 Aspirin 325 mg PO DAILY #1 tab 08/30/16 Atorvastatin [Lipitor] 10 mg PO HS #30 tab 08/30/16 Cyanocobalamin (Vitamin B-12) 500 mcg PO DAILY #30 tablet 08/30/16 [B-12 Dots] Ibuprofen [Motrin Tab] 800 mg PO Q8 PRN #20 tab 04/03/17 Polyethylene Glycol 3350 [Miralax] 1 bottle PO DAILY #1 bottle 04/03/17 Metoclopramide [Reglan] 10 mg PO Q6 PRN #20 tab 07/10/17 Naproxen [Naprosyn] 500 mg PO BID #20 tab 07/10/17 Naproxen 1 tab PO Q12 PRN #14 tab 08/25/17 Cyclobenzaprine [Cyclobenzaprine 10 mg PO BID PRN #10 tab 04/22/18 HCl] Naproxen [Naprosyn] 500 mg PO Q12 PRN #20 tablet 04/22/18 Cyclobenzaprine [Cyclobenzaprine 10 mg PO BID PRN #14 tab 06/18/18 HCl] Naproxen [Naprosyn] 500 mg PO Q12 PRN #20 tablet 06/18/18 traMADol [Ultram] 50 mg PO Q8 PRN #10 tab 06/18/18 - Allergies Allergies/Adverse Reactions: Allergies Allergy/AdvReac Type Severity Reaction Status Date / Time levofloxacin [From Levaquin] AdvReac VOMITING Verified 04/22/18 18:31 Review of Systems ROS Statement: Except As Marked, All Systems Reviewed And Found Negative Musculoskeletal: Positive for: Neck Pain, Shoulder Pain, Back Pain, Hand Pain Physical Exam - Reviewed Nursing Documentation Reviewed: Yes Vital Signs Reviewed: Yes - Physical Exam Appears: Positive for: Well, Non-toxic, Uncomfortable (tearful) Head Exam: Positive for: ATRAUMATIC, NORMAL INSPECTION, NORMOCEPHALIC Skin: Positive for: Normal Color Eye Exam: Positive for: Normal appearance ENT: Positive for: Normal ENT Inspection Cardiovascular/Chest: Positive for: Regular Rate, Rhythm Respiratory: Positive for: Normal Breath Sounds Gastrointestinal/Abdominal: Positive for: Normal Exam Back: Positive for: Vertebral Tenderness (diffuse cspine and lspine midline tenderness without skin changes, edema, palpable bony deformity.), Muscle Spasm (bilateral cspine and lspine paravertebral tenderness to palpation). Negative for: L CVA Tenderness, R CVA Tenderness, Decreased ROM Extremity: Positive for: Tenderness (medial and lateral aspect left knee with + abrasion, ecchymosis. Limited ROM flexion due to pain. Distal NV/motor intact. Tender to palpate right hand 1st MCP; no edema, deformity, snuffbox tenderness. FROM. Distal NV/motor intact), Capillary Refill (<3 sec b/l UE, LE) Neurologic/Psych: Positive for: Alert, Oriented (x3). 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) Advised follow up PMD within 2-3 days RICE Return precautions given SYED wrap applied to left knee Right arm sling Right thumb spica immobilizer Disposition - Clinical Impression Clinical Impression: Left knee injury, Injury of right thumb, Right shoulder injury, Cervical strain, Low back strain - Patient ED Disposition Is Patient to be Admitted: No Counseled Patient/Family Regarding: Studies Performed, Diagnosis, Need For Followup, Rx Given - Disposition Referrals: FAMILY PROVIDER,NO [Primary Care Provider] - [facility] [Outside] Disposition: Routine/Home Disposition Time: 22:52 Condition: IMPROVED Prescriptions: Cyclobenzaprine [Cyclobenzaprine HCl] 10 mg PO BID PRN #14 tab PRN Reason: Muscle Spasm Naproxen [Naprosyn] 500 mg PO Q12 PRN #20 tablet PRN Reason: Pain, Moderate (4-7) traMADol [Ultram] 50 mg PO Q8 PRN #10 tab PRN Reason: Pain, Severe (8-10) Instructions: Shoulder Sprain, Low Back Pain in Adults, Cervical Muscle Strain, Joint Pain, Knee Pain Print Language: DIVEHI
[2018-06-18 23:32] VITALS: BP 159/91; PULSE 63; RESP 20; TEMP 97.7; O2SAT 98
--- NOTE | 2018-06-19 10:47 | RAD ---
Date of service: 06/18/2018 PROCEDURE: Radiographs of the right hand HISTORY: fall, pain 1st digit COMPARISON: None. FINDINGS: BONES: Bone alignment and mineralization are normal. There is no acute displaced fracture or bone destruction. JOINTS: The joint spaces are preserved. SOFT TISSUES: Normal. OTHER FINDINGS: None. IMPRESSION: No acute displaced fracture or dislocation.
--- NOTE | 2018-06-19 10:49 | RAD ---
Date of service: 06/18/2018 PROCEDURE: Radiographs of the Right Shoulder HISTORY: fall, pain COMPARISON: No prior. FINDINGS: BONES: Bone alignment and mineralization are normal. There is no acute displaced fracture or bone destruction. JOINTS: There is mild degenerative osteoarthrosis in the acromioclavicular joint. The glenohumeral joint is normal. SOFT TISSUES: Normal. OTHER FINDINGS: None. IMPRESSION: No acute fracture or dislocation.
--- NOTE | 2018-06-19 10:54 | RAD ---
Date of service: 06/18/2018 PROCEDURE: Left Knee Radiographs. HISTORY: Pain. COMPARISON: None. FINDINGS: BONES: Bone alignment and mineralization are normal. There is no acute displaced fracture or bone destruction. JOINTS: Normal. No osteoarthritis. JOINT EFFUSION: There is a small suprapatellar joint effusion. OTHER FINDINGS: None. IMPRESSION: No acute fracture or dislocation.
--- NOTE | 2018-06-19 12:08 | RAD ---
Date of service: 06/18/2018 PROCEDURE: Radiographs of the Lumbar Spine. HISTORY: fall, pain COMPARISON: No prior. FINDINGS: BONES: Normal alignment. No listhesis. No fracture. DISC SPACES: Unremarkable. OTHER FINDINGS: None. IMPRESSION: Unremarkable radiographs of the lumbar spine.
--- NOTE | 2018-06-19 12:12 | RAD ---
Date of service: 06/18/2018 PROCEDURE: Cervical Spine Radiographs. HISTORY: Pain. COMPARISON: None available. FINDINGS: BONES: Alignment maintained. No fracture. Dens Intact. DISC SPACES: Normal. SOFT TISSUES: Normal. No prevertebral soft tissue swelling. OTHER FINDINGS: None. IMPRESSION: Normal cervical spine radiographs
== END 2018-06-18 23:32 | disposition home or self-care (01) ==
LOC: H.ER 18:26 → SUPCPDRO 18:26 → H.ER 23:32
DX: S16.1XXA Strain of muscle, fascia and tendon at neck level, initial encounter (principal); S39.012A Strain of muscle, fascia and tendon of lower back, initial encounter; S49.91XA Unspecified injury of right shoulder and upper arm, initial encounter; S89.92XA Unspecified injury of left lower leg, initial encounter; S69.91XA Unspecified injury of right wrist, hand and finger(s), initial encounter; W01.0XXA Fall on same level from slipping, tripping and stumbling without subsequent striking against object, initial encounter; Y92.89 Other specified places as the place of occurrence of the external cause; E78.00 Pure hypercholesterolemia, unspecified; E03.9 Hypothyroidism, unspecified
CPT/HCPCS: 29130; 72040; 72100; 73030; 73130; 73562; 81025; 96372; 99285; J1885

== ENCOUNTER 2018-12-02 20:00 | Emergency (ER) | payer OTHER ==
[2018-12-02 20:04] VITALS: BMI 31.0
[2018-12-02 20:07] VITALS: RESP 16; TEMP 98.4; O2SAT 98
[2018-12-02 21:51] VITALS: BP 144/88; PULSE 88
--- NOTE | 2018-12-02 22:24 | ED PDOC ---
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 Pt reports that about 2-3 months ago she had a fall, landing on her knees and twisting her right ankle. Since then she has had heel pain and ankle swelling as well as low back pain. The back pain has gradually gotten worse and she gets pain radiating down both legs, right worse then left. Pain is worse with movement or walking. 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 She has taken Advil and Tylenol with mild relief, this morning someone gave her 500mg Naproxen which provided temporary relief. Pt reports one day of burning with urination 1 week ago, she took an OTC medication and has not had it since. Denies fever, chills, abdominal pain, N/V, heavy lifting, recent injury,(-) paresthesias, (-) weakness, (-) acute bowel or bladder dysfunction PMD: none LMP: 3 years ago Past Medical History Reviewed: Historical Data, Nursing Documentation, Vital Signs Vital Signs: Last Vital Signs Temp 98.4 F 12/02/18 20:06 Pulse 88 12/02/18 21:51 Resp 16 12/02/18 21:51 BP 144/88 12/02/18 21:51 Pulse Ox 98 12/02/18 21:51 Primary Care Provider: Procedure,Nonphys - Medical History PMH: Diabetes, HTN, Hypercholesterolemia, Hypothyroidism, Chronic Kidney Disease Denies: HIV - Surgical History Surgical History: Appendectomy, Cholecystectomy - Family History Family History: States: Unknown Family Hx - Home Medications Home Medications: Ambulatory Orders Medication Instructions Recorded Fenofibrate [Tricor] 125 tab PO DAILY 08/29/16 Levothyroxine [Synthroid] 1 tab PO DAILY 08/29/16 Losartan [Cozaar] 1 tab PO DAILY 08/29/16 Aspirin 325 mg PO DAILY #1 tab 08/30/16 Atorvastatin [Lipitor] 10 mg PO HS #30 tab 08/30/16 Cyanocobalamin (Vitamin B-12) 500 mcg PO DAILY #30 tablet 08/30/16 [B-12 Dots] Ibuprofen [Motrin Tab] 800 mg PO Q8 PRN #20 tab 04/03/17 Polyethylene Glycol 3350 [Miralax] 1 bottle PO DAILY #1 bottle 04/03/17 Metoclopramide [Reglan] 10 mg PO Q6 PRN #20 tab 07/10/17 Naproxen [Naprosyn] 500 mg PO BID #20 tab 07/10/17 Naproxen 1 tab PO Q12 PRN #14 tab 08/25/17 Cyclobenzaprine [Cyclobenzaprine 10 mg PO BID PRN #10 tab 04/22/18 HCl] Naproxen [Naprosyn] 500 mg PO Q12 PRN #20 tablet 04/22/18 Cyclobenzaprine [Cyclobenzaprine 10 mg PO BID PRN #14 tab 06/18/18 HCl] Naproxen [Naprosyn] 500 mg PO Q12 PRN #20 tablet 06/18/18 traMADol [Ultram] 50 mg PO Q8 PRN #10 tab 06/18/18 Cyclobenzaprine [Cyclobenzaprine 10 mg PO TID PRN #12 tab 12/02/18 HCl] Naproxen 500 mg PO BID PRN #20 tab 12/02/18 - Allergies Allergies/Adverse Reactions: Allergies Allergy/AdvReac Type Severity Reaction Status Date / Time levofloxacin [From Levaquin] AdvReac VOMITING Verified 12/02/18 20:04 Review of Systems Constitutional: Negative for: Fever Genitourinary Female: Negative for: Dysuria, Frequency Musculoskeletal: Positive for: Back Pain, Leg Pain. Negative for: Neck Pain Neurological: Negative for: Weakness, Numbness, Headache Physical Exam - Reviewed Nursing Documentation Reviewed: Yes Vital Signs Reviewed: Yes - Physical Exam Comments: GENERAL APPEARANCE: Patient is awake, alert, oriented x 3, in mild obvious discomfort SKIN: Warm, dry; (-) cyanosis. EYES: (-) conjunctival pallor. ENMT: Mucous membranes moist. NECK: (-) tenderness, (-) stiffness, (-) lymphadenopathy. CHEST AND RESPIRATORY: (-) rales, (-) rhonchi, (-) wheezes; breath sounds equal bilaterally. HEART AND CARDIOVASCULAR: (-) irregularity; (-) murmur, (-) gallop. ABDOMEN AND GI: Soft; (-) tenderness; (-) palpable mass. BACK: (+) bilateral paraspinal tenderness L4-S1, (+) mild spasm right paraspinal, (+) direct bony tenderness L4-5, (-) deformity. (+) R SLR, (- )saddle anesthesia, decrease ROM due to pain EXTREMITIES: (-) deformity. (-) swelling, pulses + 2, capillary refill <2sec, NVI, for all extremities; RLE: (+)tenderness to bottom of heel, no swelling, (- )medial or lateral malleolus tenderness, (+)FROM NEURO AND PSYCH: Mental status as above. Intact sensation bilaterally; normal strength in extension of the knees, plantar and dorsiflexion of the toes. DTRs symmetric. strength 5/5 x4, steady gait, quirk sander 2-12 intact - ECG O2 Sat by Pulse Oximetry: 98 Medical Decision Making Medical Decision Makin:45 --Lumbar XR -- Heel XR - Toradol, Decadron, Flexeril (pt is not driving home) -- re eval 22:00 Xrs reviewed by me - no acute fx or dislocation, on heel or back (+) calcaneal spur discussed with pt she will be notified of any discrepancies with radiology read 22:35 on re eval pt reports improved pain, pt moving and ambulating with less pain, neurologically intact, + muscle spasm used language line [id number] to discuss results, diagnosis, treatment, return precautions and f/u with pt who is understanding, in agreement and stable for dc Disposition - Clinical Impression Clinical Impression: Low back pain, Muscle spasm, Sciatica, right side, Heel spur - Patient ED Disposition Is Patient to be Admitted: No Counseled Patient/Family Regarding: Studies Performed, Diagnosis, Need For Followup, Rx Given - Disposition Referrals: [facility] [Outside] Disposition: Routine/Home Disposition Time: 22:40 Condition: IMPROVED Additional Instructions: Sergei por dejarnos cuidar de ti hoy. [place] la medicacin segn lo prescrito. No conduzca ni jonatan alcohol cuando est tomando flexeril. Descanse, evite levantar objetos pesados ??o realizar actividades extenuantes sejal jacinda semana. Use almohadillas trmicas y duchas de [place] para ayudar a calmar los msculos. Megan un seguimiento con el mdico mikki se indica. La atencin mdica de emergencia que recibi hoy se dirigi a sandip sntomas agudos. Si le recetaron algn medicamento, llnelo y tmelo segn las indicaciones. Los sntomas pueden tardar varios rosen en resolverse. Regrese al Departamento de Emergencias si sandip sntomas empeoran, no mejoran o si tiene otros problemas. Comunquese con burt mdico dentro de 2 rosen para jacinda nueva evaluacin y megan un seguimiento o llame a mala de los mdicos / clnicas a los que sebastian sido referido y que figuran en el formulario de Informacin de visita al paciente que se incluye en burt [place]. Lleve todos los documentos que recibi al momento del [place] junto con los medicamentos que est tomando para burt visita de seguimiento. Nuestro tratamiento no puede reemplazar la atencin mdica continua por parte de un proveedor de atencin primaria (PCP) fuera del departamento de emergencias. Prescriptions: Cyclobenzaprine [Cyclobenzaprine HCl] 10 mg PO TID PRN #12 tab PRN Reason: muscle relaxation and pain Naproxen 500 mg PO BID PRN #20 tab PRN Reason: Pain, Moderate (4-7) Instructions: Sciatica, Low Back Pain in Adults, Muscle Spasms (DC), Heel Spurs, Sciatica Exercises Forms: [employer] (Bel[place]ian), [facility] ED School/Work Excuse Print Language: MICRONESIAN - POA Present On Arrival: None
--- NOTE | 2018-12-03 08:11 | RAD ---
Date of service: 12/02/2018 PROCEDURE: Radiographs of the Lumbar Spine. HISTORY: pain COMPARISON: No prior. TECHNIQUE: 5 views obtained. FINDINGS: BONES: Normal alignment. No listhesis. No fracture. Minimal endplate spurring L4 inferior endplate Minimal to mild bilateral facet hypertrophic arthrosis L4-5 level DISC SPACES: Unremarkable. OTHER FINDINGS: Right upper quadrant cholecystectomy clips. Metallic density projects over left iliac bone incompletely assessed may be related to a ring not appreciated on lateral view. Correlate clinically. Stool retention. IMPRESSION: No fracture or subluxation. Degenerative changes as above. Other findings as above.
--- NOTE | 2018-12-03 08:14 | RAD ---
Date of service: 12/02/2018 PROCEDURE: Radiographs of the right calcaneus/hindfoot. HISTORY: pain, injury 3 months COMPARISON: 08/25/2017 TECHNIQUE: Frontal and lateral radiographs of the calcaneus. FINDINGS: No fracture or joint dislocation. No lytic focal lesion. Inferior calcaneal spur present and similar. Along the anterior inferior tibial full, rounded bony density is seen-bony excrescence and/or developmental variation here are some considerations. Tiny 1 mm inferior chip fracture fragment here possible in joint space not apparent on prior study. Ossific debris and joint-a consideration. IMPRESSION: No acute cortical fracture. Nonspecific findings bordering the anterior inferior tibial plafond-tibial talar joint level. Other findings as above.
== END 2018-12-02 22:50 | disposition home or self-care (01) ==
LOC: H.ER 20:00
DX: M54.5 Low back pain (principal); M62.838 Other muscle spasm; M54.41 Lumbago with sciatica, right side; E03.9 Hypothyroidism, unspecified; I12.9 Hypertensive chronic kidney disease with stage 1 through stage 4 chronic kidney disease, or unspecified chronic kidney disease; M77.31 Calcaneal spur, right foot; W19.XXXA Unspecified fall, initial encounter; Z79.82 Long term (current) use of aspirin; N18.9 Chronic kidney disease, unspecified; E78.00 Pure hypercholesterolemia, unspecified; Z88.1 Allergy status to other antibiotic agents
CPT/HCPCS: 72100; 73650; 96372; 99282; J1100; J1885